=== PATIENT | male | born 1945 | race Caucasian/White ===

== ENCOUNTER 2023-06-15 12:53 | Outpatient (CLI) | payer OTHER, SELFPAY | END 2023-06-15 12:54 | disposition home or self-care (01) | LOC: RAD 12:59 | PROVIDERS: Visit Provider Chiropractor | DX: I25.9 Chronic ischemic heart disease, unspecified (principal); I35.1 Nonrheumatic aortic (valve) insufficiency; I34.0 Nonrheumatic mitral (valve) insufficiency; I07.1 Rheumatic tricuspid insufficiency | CPT/HCPCS: 93306 ==